=== PATIENT | female | born 1990 | race Caucasian/White ===

== ENCOUNTER 2018-04-20 17:13 | Emergency (ER) | payer OTHER ==
[~2018-04-20] VITALS: Ht 152.4 cm; Wt 90.9 kg
[2018-04-20 17:34] VITALS: BP 120/88
--- NOTE | 2018-04-20 17:34 | NUR ---
Patient ambulated to bed 2. RN evaluating patient at bedside.
--- NOTE | 2018-04-20 17:40 | NUR ---
27 YO F C/O SOB WITH MID CHEST PAIN ON INHALATION X 1 MONTH; SMOKE 3 CIGARS A WK, 2-3 PACKS A WK BEFORE; STARTED SMOKING AT 17YRS OLD. PT STATES CHES DISCOMFORT WITH INSPIATION. DIMINISHED BREATHSOUND IN LOWER LOABS. SHALLOW BREATHS DUE TO PAIN 10. WILL CONTINUE TO MONITOR HX; DENIES RX; DENIES
[2018-04-20] MEDS ORDERED: DEXAMETHASONE 10 MG/ML VIAL IM ONE (17:50)
[2018-04-20] MEDS ORDERED: ALBUTEROL SULFATE/IPRATROPIU 3 ML SOL IH ONE (17:50)
--- NOTE | 2018-04-20 18:02 | NUR ---
Breathing treatment administered at bedside by respiratory therapist.
[2018-04-20 18:53] VITALS: BP 119/75
--- NOTE | 2018-04-20 18:54 | NUR ---
Patient discharged with v/s stable. Written and verbal after care instructions given and explained. Patient alert, oriented and verbalized understanding of instructions. Ambulatory with steady gait. All questions addressed prior to discharge. ID band removed. Patient advised to follow up with PMD. Rx of AZITHROMYCIN, PREDNISONE given. Patient educated on indication of medication including possible reaction and side effects. Opportunity to ask questions provided and answered.
[2018-04-20 19:34] LABS: BARBITURATE, URINE NEG. ng/ml (NEG <=200); BENZODIAZEPINE, URINE NEG. ng/mL (NEG <=200); CANNABINOID, URINE POS. ng/mL (NEG <=50); COCAINE, URINE NEG. ng/mL (NEG <=300); OPIATE, URINE NEG. ng/mL (NEG <=2000); PHENCYCLIDINE SCREEN,URINE NEG. ng/mL (NEG <=25)
== END 2018-04-20 18:54 | disposition home or self-care (01) ==
LOC: MED 17:13
DX: J06.9 Acute upper respiratory infection, unspecified (principal); J41.0 Simple chronic bronchitis; F17.210 Nicotine dependence, cigarettes, uncomplicated; F12.90 Cannabis use, unspecified, uncomplicated
CPT/HCPCS: 71046; 80305; 81002; 81025; 94640; 96372; 99285; J1100; J7620